=== PATIENT | female | born 1990 | race Caucasian/White ===

== ENCOUNTER 2019-01-05 06:37 | Inpatient (IN) | payer BC ==
[2019-01-05] MEDS ORDERED: Oxytocin/Lactated Ringers 10 UNIT/1,000 ML BAG IV SCH (07:15)
[2019-01-05] MEDS ORDERED: Misoprostol 25 MCG (1/4 of 100 MCG) Tab ONE ×2 (07:15→10:17)
[2019-01-05] MEDS ORDERED: Sodium Chloride 0.9% 10 ML Syringe FLUSH PRN (07:15)
[2019-01-05] MEDS ORDERED: Misoprostol 25 MCG (1/4 of 100 MCG) Tab VAG ONE (07:19)
--- NOTE | 2019-01-05 07:38 | PCM.LDHP ---
L&D History of Present Illness - General Date of Service: 01/05/19 Admit Problem/Dx: Admission Diagnosis/Problem Admission Diagnosis/Problem Source of Information: Patient History Limitations: Reports: No Limitations - History of Present Illness Introduction:: 28-year-old 001 OLMAN 01/10/19 estimated gestational age 39 weeks and 2 days presented to labor and delivery for induction of labor. Patient has been taking Valtrex 500 mg daily for history of herpes simplex virus of the vulva. No recent outbreaks. Patient also seen yesterday for severe tooth pain prescribed Tylenol No. 3 one or 2 by mouth every 6 hours dispense 20 and Augmentin 875 mg by mouth twice a day. She has started the Augmentin but trying to avoid pain medication if possible. We'll continue Augmentin and Valtrex in the hospital during labor and . GBS negative on 12/13/18. No history of exposure to Zika virus, no history of MRSA. 06/19/18 blood type A positive antibody screen negative, hemoglobin/hematocrit 12.6/37.0 platelets 311,000 rubella immune serology nonreactive urine culture showed 10 20,000 colony count streptococcus constellatus. Hepatitis B surface antigen and HIV negative GC and chlamydia probe negative 10/09/18 hemoglobin/hematocrit 11.7/35.7 platelets 236,000 OB glucose screen 102 RPR nonreactive On 12/13/18 GBS negative. Patient will undergo induction of labor and plan delivery. Improves with: Reports: None Worsens with: Reports: None Associated Symptoms: Reports: N - Related Data Allergies/Adverse Reactions: Allergies Allergy/AdvReac Type Severity Reaction Status Date / Time No Known Allergies Allergy Verified 01/04/19 12:42 Home Medications: Home Meds Amoxicillin/Clavulanate K [Augmentin 875-125 MG] 1 tab PO Q12HR 01/05/19 [ History] Pnv No.122/Iron/Folic Acid [ Multi Tablet] 1 each PO DAILY 01/05/19 [ History] valACYclovir HCl [Valtrex] 500 mg PO DAILY 01/05/19 [History] Past Medical History Genitourinary History: Reports: UTI, Recurrent (Patient has history of recurrent UTIs.) Dermatologic History: Reports: Other (See Below) (History of granuloma annulare) Social & Family History - Family History Cardiac: Reports: Hypertension (Paternal grandmother), Other (See Below) (Heart disease paternal and maternal grandfather, heart attack. Maternal grandmother congestive heart failure) Endocrine/Metabolic: Reports: Diabetes, Type I (Paternal grandmother and maternal grand mother and grandfather) H&P Review of Systems - Review of Systems: Review Of Systems: See Below General: Reports: No Symptoms HEENT: Reports: No Symptoms Pulmonary: Reports: No Symptoms Cardiovascular: Reports: No Symptoms Gastrointestinal: Reports: No Symptoms Genitourinary: Reports: No Symptoms Musculoskeletal: Reports: No Symptoms Skin: Reports: No Symptoms Psychiatric: Reports: No Symptoms Neurological: Reports: No Symptoms Hematologic/Lymphatic: Reports: No Symptoms Immunologic: Reports: No Symptoms L&D Exam - Exam Exam: See Below - Vital Signs Vital Signs: Last Vital Signs Temp 96.8 F 01/05/19 07:17 Pulse 116 H 01/05/19 07:17 Resp 14 01/05/19 07:17 BP 124/89 01/05/19 07:17 Pulse Ox - OB Specific Fundal Height In cm: 38 Movement: Active Heart Tones: Present Heart Tones per Min: 145 Heart Rate (FHR) Variability: Moderate (6-25 bmp) Presentation: Vertex - Colón Score Colón Score Cervix Position: Posterior Colón Score Consistency: Soft Colón Score Effacement: 0-30% Colón Score Dilation: 1-2 cm Colón Score 's Station: -1 ,0 Colón Score Total: 5 - Exam General: Alert, Oriented HEENT: Conjunctiva Clear, Mucosa Moist & [place], PERRLA Neck: Supple, Trachea Midline Lungs: Clear to Auscultation, Normal Respiratory Effort Cardiovascular: Regular Rate, Regular Rhythm GI/Abdominal Exam: Normal Bowel Sounds, Soft, Non-Tender Genitourinary: Normal external exam Extremities: Normal Inspection, Normal Range of Motion, Non-Tender, No Pedal Edema, Normal Capillary Refill Skin: Warm, Dry, Intact Neurological: Reflexes Equal Bilateral Psychiatric: Alert, Normal Affect, Normal Mood - Problem List (1) 39 weeks gestation of SNOMED Code(s): 23963190 ICD Code: Z3A.39 - 39 WEEKS GESTATION OF Status: Acute Current Visit: No Problem List Initiated/Reviewed/Updated: No Orders Last 24hrs: Active Orders 24 hr Category Date Time Status Communication Order [RC] ASDIRECTED Care 01/05/19 07:18 Active Communication Order [RC] ASDIRECTED Care 01/05/19 07:18 Active Communication Order [RC] ASDIRECTED Care 01/05/19 07:18 Active Monitoring [RC] INTERMITTENT Care 01/05/19 07:18 Active Non Stress Test [RC] PER UNIT ROUTINE Care 01/05/19 07:18 Active Notify Provider [RC] ASDIRECTED Care 01/05/19 07:18 Active Peripheral IV Care [RC] . DIRECTED Care 01/05/19 07:19 Active Vaginal Exam [RC] ASDIRECTED Care 01/05/19 07:18 Active Vital Signs [RC] ASDIRECTED Care 01/05/19 07:18 Active Regular Diet [DIET] Diet 01/05/19 Breakfast Active CBC WITH AUTO DIFF [HEME] Stat Lab 01/05/19 07:15 Ordered TYPE AND SCREEN [BBK] Stat Lab 01/05/19 07:15 Ordered Amoxicillin/Clavulanate K [Augmentin 875 MG/125 MG] Med 01/05/19 09:00 Pending 1 tab PO Q12HR Lactated Ringers [Ringers, Lactated] 1,000 ml Med 01/05/19 07:15 Active IV ASDIRECTED Oxytocin/Lactated Ringers [Pitocin in LR 10 Units/1,000 Med 01/05/19 07:15 Active ML] 10 unit in 1,000 ml IV TITRATE Sodium Chloride 0.9% [Saline Flush] Med 01/05/19 07:15 Active 10 ml FLUSH ASDIRECTED PRN valACYclovir [Valtrex] Med 01/05/19 09:00 Ordered 500 mg PO DAILY Peripheral IV Insertion Adult [OM.PC] Routine Oth 01/05/19 07:18 Ordered Medication Orders Amoxicillin/Clavulanate Potassium (Augmentin 875 Mg/125 Mg) 1 tab PO Q12HR AGA Lactated Ringer's (Ringers, Lactated) 1,000 mls @ 40 mls/hr IV ASDIRECTED AGA Oxytocin/Lactated Ringer's (Pitocin In Lr 10 Units/1,000 Ml) 10 unit in 1,000 mls @ 12 mls/hr IV TITRATE AGA; Protocol Sodium Chloride (Saline Flush) 10 ml FLUSH ASDIRECTED PRN PRN Reason: Keep Vein Open Valacyclovir HCl (Valtrex) 500 mg PO DAILY AGA Assessment/Plan Comment:: Plan delivery
[2019-01-05] MEDS ORDERED: diphenhydrAMINE 50 MG/ML SDV IVPUSH PRN (07:39)
[2019-01-05] MEDS ORDERED: fentaNYL 100 MCG/2 ML SDV EPIDUR PRN (07:39)
[2019-01-05] MEDS ORDERED: ePHEDrine 50 MG/ML SDV IVPUSH PRN (07:39)
[2019-01-05] MEDS ORDERED: Bupivacaine/fentaNYL/NS 100 ML Bag EPIDUR SCH (07:45)
--- NOTE | 2019-01-05 07:50 | PCM.SN ---
- Free Text/Narrative Note: [place] [address]05/[address]. Cat I FHR. Cervix 1, 30%, soft, posterior, vertex -1.
[2019-01-05] MEDS ORDERED: valACYclovir 500 MG Tab PO SCH ×3 (09:00→22:45)
--- NOTE | 2019-01-05 10:29 | PCM.SN ---
- Free Text/Narrative Note: Cervix -/S/P/V-[address] hood in cervix, attempted amniotomy but unsuccessful, place Cytotec 50 mcg at 1024 Cat I FHR.
[2019-01-05] MEDS ORDERED: Misoprostol 25 MCG (1/4 of 100 MCG) Tab VAG PRN (10:34)
[2019-01-05] MEDS ORDERED: Bupivacaine 0.25% 10 ML SDV ONE (12:00)
--- NOTE | 2019-01-05 13:21 | PCM.SN ---
- Free Text/Narrative Note: Amniotomy at 1315 hrs Tuesday01/05/19 clear fluid, cervix 2-3,40,soft, posterior , vertex-1/0. Cat I FHR. Will begin pitocin augmentation when indicated.
[2019-01-05] MEDS: Lactated Ringers 1,000 ML IV SCH ×2 (13:30→15:41)
--- NOTE | 2019-01-05 14:56 | PCM.PREANE ---
Preanesthetic Assessment - Anesthesia/Transfusion/Family Hx Anesthesia History: Prior Anesthesia Without Reaction Family History of Anesthesia Reaction: No Transfusion History: No Prior Transfusion(s) - Physical Assessment Pulse: 104 O2 Sat by Pulse Oximetry: 100 Respiratory Rate: 14 Blood Pressure: 117/80 Vital Signs: Last Vital Signs Temp 36.0 C 01/05/19 07:18 Pulse 104 H 01/05/19 08:30 Resp 14 01/05/19 07:18 BP 117/80 01/05/19 08:30 Pulse Ox 100 01/05/19 07:18 Height: 1.57 m Weight: 80.739 kg - Lab Values: Laboratory Last Values WBC 11.71 K/mm3 (3.98-10.04) H 01/05/19 07:35 RBC 4.31 M/mm3 (3.98-5.22) 01/05/19 07:35 Hgb 12.1 gm/L (11.2-15.7) 01/05/19 07:35 Hct 36.6 % (34.1-44.9) 01/05/19 07:35 MCV 84.9 fl (79.4-94.8) 01/05/19 07:35 MCH 28.1 pg (25.6-32.2) 01/05/19 07:35 MCHC 33.1 g/dl (32.2-35.5) 01/05/19 07:35 RDW Std Deviation 45.7 fL (36.4-46.3) 01/05/19 07:35 Plt Count 233 K/mm3 (182-369) 01/05/19 07:35 MPV 10.4 fl (9.4-12.3) 01/05/19 07:35 Neut % (Auto) 71.0 % (34.0-71.1) 01/05/19 07:35 Lymph % (Auto) 20.0 % (19.3-51.7) 01/05/19 07:35 [place] % (Auto) 8.0 % (4.7-12.5) 01/05/19 07:35 Eos % (Auto) 0.4 (0.7-5.8) L 01/05/19 07:35 Baso % (Auto) 0.1 % (0.1-1.2) 01/05/19 07:35 Neut # (Auto) 8.31 K/mm3 (1.56-6.13) H 01/05/19 07:35 Lymph # (Auto) 2.34 K/mm3 (1.18-3.74) 01/05/19 07:35 [place] # (Auto) 0.94 K/mm3 (0.24-0.36) H 01/05/19 07:35 Eos # (Auto) 0.05 K/mm3 (0.04-0.36) 01/05/19 07:35 Baso # (Auto) 0.01 K/mm3 (0.01-0.08) 01/05/19 07:35 Blood Type A POSITIVE 01/05/19 07:35 Gel Antibody Screen Negative 01/05/19 07:35 - Allergies Allergies/Adverse Reactions: Allergies Allergy/AdvReac Type Severity Reaction Status Date / Time No Known Allergies Allergy Verified 01/04/19 12:42 PreAnesthesia Questionnaire Genitourinary History: Reports: UTI, Recurrent (Patient has history of recurrent UTIs.) [employer] History: Reports: Dermatologic History: Reports: Other (See Below) (History of granuloma annulare) - Infectious Disease History Infectious Disease History: Reports: Herpes - SUBSTANCE USE Smoking Status *Q: Never Smoker Second Hand Smoke Exposure: No Recreational Drug Use History: No - HOME MEDS Home Medications: Home Meds Amoxicillin/Clavulanate K [Augmentin 875-125 MG] 1 tab PO Q12HR 01/05/19 [ History] Pnv No.122/Iron/Folic Acid [ Multi Tablet] 1 each PO DAILY 01/05/19 [ History] valACYclovir HCl [Valtrex] 500 mg PO DAILY 01/05/19 [History] - CURRENT (IN HOUSE) MEDS Current Meds: Current Medications Diphenhydramine HCl (Benadryl) 25 mg IVPUSH Q6H PRN PRN Reason: Itching Ephedrine Sulfate (Ephedrine Sulfate) 5 mg IVPUSH ASDIRECTED PRN PRN Reason: HYPOTENTSION Fentanyl (Sublimaze) 100 mcg EPIDUR Q3H PRN PRN Reason: Pain Fentanyl/Bupivacaine HCl (Fentanyl/Bupivacaine/Ns 2 Mcg-0.125% 100 Ml) 100 ml EPIDUR ASDIRECTED AGA Last Admin: 01/05/19 14:18 Dose: 100 ml Lactated Ringer's (Ringers, Lactated) 1,000 mls @ 40 mls/hr IV ASDIRECTED [facility] Last Admin: 01/05/19 13:30 Dose: 40 mls/hr Oxytocin/Lactated Ringer's (Pitocin In Lr 10 Units/1,000 Ml) 10 unit in 1,000 mls @ 12 mls/hr IV TITRATE [facility]; Protocol Last Admin: 01/05/19 14:01 Dose: 2 munits/min, 12 mls/hr Misoprostol (Cytotec) 50 mcg VAG ONETIME PRN PRN Reason: labor induction Amoxicillin/Clavulanate K 875- 125 Mg Tab Ptom 0 each PO Q12H [facility] Sodium Chloride (Saline Flush) 10 ml FLUSH ASDIRECTED PRN PRN Reason: Keep Vein Open Valacyclovir HCl (Valtrex) 500 mg PO 2100 AGA Discontinued Medications Amoxicillin/Clavulanate Potassium (Augmentin 875 Mg/125 Mg) 1 tab PO Q12H [facility] Misoprostol (Cytotec) Confirm Administered Dose 50 mcg .ROUTE .STK-MED ONE Stop: 01/05/19 07:16 Last Admin: 01/05/19 07:24 Dose: 50 mcg Misoprostol (Cytotec) 50 mcg VAG ONETIME ONE Stop: 01/05/19 07:20 Last Admin: 01/05/19 14:02 Dose: Not Given Misoprostol (Cytotec) Confirm Administered Dose 50 mcg .ROUTE .STK-MED ONE Stop: 01/05/19 10:18 Last Admin: 01/05/19 10:32 Dose: 50 mcg Valacyclovir HCl (Valtrex) 500 mg PO DAILY [facility]
--- NOTE | 2019-01-05 14:58 | PCM.POSTAN ---
POST ANESTHESIA ASSESSMENT - MENTAL STATUS Mental Status: Alert - RESPIRATORY Respiratory Status: Respiratory Rate WNL, Airway Patent, O2 Saturation Stable - CARDIOVASCULAR CV Status: Pulse Rate WNL, Blood Pressure Stable - GASTROINTESTINAL GI Status: No Symptoms - POST OP HYDRATION Hydration Status: Adequate & Stable
--- NOTE | 2019-01-05 14:59 | PCM.PREANE ---
Preanesthetic Assessment - Anesthesia/Transfusion/Family Hx Anesthesia History: Prior Anesthesia Without Reaction Family History of Anesthesia Reaction: No Transfusion History: No Prior Transfusion(s) Intubation History: Unknown - Review of Systems General: No Symptoms Pulmonary: No Symptoms Cardiovascular: No Symptoms Gastrointestinal: No Symptoms Neurological: No Symptoms Other: Reports: None - Physical Assessment Pulse: 104 O2 Sat by Pulse Oximetry: 100 Respiratory Rate: 14 Blood Pressure: 117/80 Vital Signs: Last Vital Signs Temp 36.0 C 01/05/19 07:18 Pulse 104 H 01/05/19 14:56 Resp 14 01/05/19 14:56 BP 117/80 01/05/19 14:56 Pulse Ox 100 01/05/19 14:56 Height: 1.57 m Weight: 80.739 kg Mental Status: Alert & Oriented x3 Airway Class: Mallampati = 1 Dentition: Reports: Normal Dentition ROM/Head Extension: Full Lungs: Clear to Auscultation Cardiovascular: Regular Rate, Regular Rhythm - Lab Values: Laboratory Last Values WBC 11.71 K/mm3 (3.98-10.04) H 01/05/19 07:35 RBC 4.31 M/mm3 (3.98-5.22) 01/05/19 07:35 Hgb 12.1 gm/L (11.2-15.7) 01/05/19 07:35 Hct 36.6 % (34.1-44.9) 01/05/19 07:35 MCV 84.9 fl (79.4-94.8) 01/05/19 07:35 MCH 28.1 pg (25.6-32.2) 01/05/19 07:35 MCHC 33.1 g/dl (32.2-35.5) 01/05/19 07:35 RDW Std Deviation 45.7 fL (36.4-46.3) 01/05/19 07:35 Plt Count 233 K/mm3 (182-369) 01/05/19 07:35 MPV 10.4 fl (9.4-12.3) 01/05/19 07:35 Neut % (Auto) 71.0 % (34.0-71.1) 01/05/19 07:35 Lymph % (Auto) 20.0 % (19.3-51.7) 01/05/19 07:35 [place] % (Auto) 8.0 % (4.7-12.5) 01/05/19 07:35 Eos % (Auto) 0.4 (0.7-5.8) L 01/05/19 07:35 Baso % (Auto) 0.1 % (0.1-1.2) 01/05/19 07:35 Neut # (Auto) 8.31 K/mm3 (1.56-6.13) H 01/05/19 07:35 Lymph # (Auto) 2.34 K/mm3 (1.18-3.74) 01/05/19 07:35 [place] # (Auto) 0.94 K/mm3 (0.24-0.36) H 01/05/19 07:35 Eos # (Auto) 0.05 K/mm3 (0.04-0.36) 01/05/19 07:35 Baso # (Auto) 0.01 K/mm3 (0.01-0.08) 01/05/19 07:35 Blood Type A POSITIVE 01/05/19 07:35 Gel Antibody Screen Negative 01/05/19 07:35 - Allergies Allergies/Adverse Reactions: Allergies Allergy/AdvReac Type Severity Reaction Status Date / Time No Known Allergies Allergy Verified 01/04/19 12:42 - Anesthesia Plan Pre-Op Medication Ordered: None - Acknowledgements Anesthesia Type Planned: Epidural Pt an Appropriate Candidate for the Planned Anesthesia: Yes Alternatives and Risks of Anesthesia Discussed w Pt/Guardian: Yes Pt/Guardian Understands and Agrees with Anesthesia Plan: Yes PreAnesthesia Questionnaire Genitourinary History: Reports: UTI, Recurrent (Patient has history of recurrent UTIs.) CALL PERSON History: Reports: Dermatologic History: Reports: Other (See Below) (History of granuloma annulare) - Infectious Disease History Infectious Disease History: Reports: Herpes - SUBSTANCE USE Smoking Status *Q: Never Smoker Second Hand Smoke Exposure: No Recreational Drug Use History: No - HOME MEDS Home Medications: Home Meds Amoxicillin/Clavulanate K [Augmentin 875-125 MG] 1 tab PO Q12HR 01/05/19 [ History] Pnv No.122/Iron/Folic Acid [ Multi Tablet] 1 each PO DAILY 01/05/19 [ History] valACYclovir HCl [Valtrex] 500 mg PO DAILY 01/05/19 [History] - CURRENT (IN HOUSE) MEDS Current Meds: Current Medications Diphenhydramine HCl (Benadryl) 25 mg IVPUSH Q6H PRN PRN Reason: Itching Ephedrine Sulfate (Ephedrine Sulfate) 5 mg IVPUSH ASDIRECTED PRN PRN Reason: HYPOTENTSION Fentanyl (Sublimaze) 100 mcg EPIDUR Q3H PRN PRN Reason: Pain Fentanyl/Bupivacaine HCl (Fentanyl/Bupivacaine/Ns 2 Mcg-0.125% 100 Ml) 100 ml EPIDUR ASDIRECTED [facility] Last Admin: 01/05/19 14:18 Dose: 100 ml Lactated Ringer's (Ringers, Lactated) 1,000 mls @ 40 mls/hr IV ASDIRECTED [facility] Last Admin: 01/05/19 13:30 Dose: 40 mls/hr Oxytocin/Lactated Ringer's (Pitocin In Lr 10 Units/1,000 Ml) 10 unit in 1,000 mls @ 12 mls/hr IV TITRATE [facility]; Protocol Last Admin: 01/05/19 14:01 Dose: 2 munits/min, 12 mls/hr Misoprostol (Cytotec) 50 mcg VAG ONETIME PRN PRN Reason: labor induction Amoxicillin/Clavulanate K 875- 125 Mg Tab Ptom 0 each PO Q12H [facility] Sodium Chloride (Saline Flush) 10 ml FLUSH ASDIRECTED PRN PRN Reason: Keep Vein Open Valacyclovir HCl (Valtrex) 500 mg PO 2100 AGA Discontinued Medications Amoxicillin/Clavulanate Potassium (Augmentin 875 Mg/125 Mg) 1 tab PO Q12H [facility] Misoprostol (Cytotec) Confirm Administered Dose 50 mcg .ROUTE .STK-MED ONE Stop: 01/05/19 07:16 Last Admin: 01/05/19 07:24 Dose: 50 mcg Misoprostol (Cytotec) 50 mcg VAG ONETIME ONE Stop: 01/05/19 07:20 Last Admin: 01/05/19 14:02 Dose: Not Given Misoprostol (Cytotec) Confirm Administered Dose 50 mcg .ROUTE .STK-MED ONE Stop: 01/05/19 10:18 Last Admin: 01/05/19 10:32 Dose: 50 mcg Valacyclovir HCl (Valtrex) 500 mg PO DAILY [facility]
--- NOTE | 2019-01-05 16:41 | PCM.SN ---
- Free Text/Narrative Note: Cervix 8 cm, 100 % effaced, soft, anterior, vertex at +1 station. Cat II FHR, changing positions, discontinued Pitocin.
--- NOTE | 2019-01-05 17:05 | PCM.SN ---
- Free Text/Narrative Note: Rim of cervix on right, (9cm), +1 station, FHR improved with repositioning patient. Continue with anticipated vaginal delivery.
[2019-01-05] MEDS ORDERED: CLAVULANATE K PO SCH (18:00)
[2019-01-05] MEDS ORDERED: AMOXICILLIN PO SCH (18:00)
[2019-01-05] MEDS ORDERED: Lidocaine 1% 50 ML MDV ONE (18:14)
--- NOTE | 2019-01-05 18:55 | PCM.DEL ---
L & D Note - General Info Date of Service: 01/05/19 Mother's Due Date: 01/09/19 - Delivery Note Labor: Augmented by ARM, Augmented by Oxytocin Cervical Ripening Method: Misoprostil (50 mcg x2 ) Delivery Outcome: Livebirth (male liveborn Tuesday01/05/19 at 18 when he 6 hours ESTHELA short umbilical cord. Weight 3460 grams/7 pounds 10 ounces Apgars 7/8 under epidural anesthesia over a second-degree midline perineal laceration and first- degree right labia minora laceration within 2 mm of the external urethral meatus. The first-degree laceration, pressure applied for 10 minutes by the clock and no bleeding not sutured. Second-degree laceration midline and sutured with 3-0 Monocryl times one) Delivery Method: Spontaneous Vaginal Delivery-Single Delivery Mode: Spontaneous Presentation: Left Occiput Anterior (ESTHELA) Nuchal Cord: None (Short umbilical cord) Prep: Povidone-Iodine (Betadine Anesthesia Type: Epidural Amniotic Fluid Description: Clear Episiotomy Type: None Laceration: 1st Degree (Right labia minora first-degree laceration within 2 mm of the external urethral meatus. Pressure applied bleeding controlled with pressure no sutures needed.), 2nd Degree (Active degree midline perineal laceration sutured with 3-0 Monocryl times one) Suture type: Other (Monocryl) Suture size: 3-0 (Times one) Placenta: Intact, Spontaneous (Spontaneous delivery of placenta 1832 hrs. Tuesday01/05/19 intact 3 vessel cord eccentric cord insertion short umbilical cord) Cord: 3 Vessels Estimated Blood Loss: 250 Resuscitation Needed: No [place]: Suctioned, Bulb Syringe, Stimulated, Warmed, [place] Used, Warmer Used Provider: Tre Schwartz Score 1 min: 7 Score 5 min: 8 Induction Criteria - Colón Score Colón Score Dilation: 1-2 cm Colón Score Effacement: 0-30% Colón Score 's Station: -2 Colón Score Consistency: Soft Colón Score Cervix Position: Posterior Colón Score Total: 4 Colón Score Presenting Part: Reports: Cephalic - Induction Gestational Age >/= 39 wks: Yes Estimated Pelvis: Reports: Adequate Reassuring Monitoring Strip: Yes Absence of Tachy Systole: Yes - Augmentation Estimated Pelvis: Reports: Adequate Weight Estimated:: Reports: AGA Reassuring Monitoring Strip: Yes Absence of Tachy Systole: Yes - General Info Date of Service: 01/05/19 Functional Status: Reports: Pain Controlled - Review of Systems General: Reports: No Symptoms HEENT: Reports: No Symptoms Pulmonary: Reports: No Symptoms Cardiovascular: Reports: No Symptoms Gastrointestinal: Reports: No Symptoms Genitourinary: Reports: No Symptoms Musculoskeletal: Reports: No Symptoms Skin: Reports: No Symptoms Neurological: Reports: No Symptoms Psychiatric: Reports: No Symptoms - Patient Data Vitals - Most Recent: Last Vital Signs Temp 96.8 F 01/05/19 07:18 Pulse 104 H 01/05/19 14:59 Resp 14 01/05/19 14:59 BP 117/80 01/05/19 14:59 Pulse Ox 100 01/05/19 14:59 Weight - Most Recent: 178 lb I&O - Last 24 Hours: Intake & Output 01/05/19 01/05/19 01/05/19 06:59 14:59 22:59 Intake Total 300 Balance 300 Lab Results Last 24 Hours: Laboratory Results - last 24 hr 01/05/19 01/05/19 Range/Units 07:35 07:35 WBC 11.71 H (3.98-10.04) K/mm3 RBC 4.31 (3.98-5.22) M/mm3 Hgb 12.1 (11.2-15.7) gm/L Hct 36.6 (34.1-44.9) % MCV 84.9 (79.4-94.8) fl MCH 28.1 (25.6-32.2) pg MCHC 33.1 (32.2-35.5) g/dl RDW Std Deviation 45.7 (36.4-46.3) fL Plt Count 233 (182-369) K/mm3 MPV 10.4 (9.4-12.3) fl Neut % (Auto) 71.0 (34.0-71.1) % Lymph % (Auto) 20.0 (19.3-51.7) % [place] % (Auto) 8.0 (4.7-12.5) % Eos % (Auto) 0.4 L (0.7-5.8) Baso % (Auto) 0.1 (0.1-1.2) % Neut # (Auto) 8.31 H (1.56-6.13) K/mm3 Lymph # (Auto) 2.34 (1.18-3.74) K/mm3 [place] # (Auto) 0.94 H (0.24-0.36) K/mm3 Eos # (Auto) 0.05 (0.04-0.36) K/mm3 Baso # (Auto) 0.01 (0.01-0.08) K/mm3 Blood Type A POSITIVE Gel Antibody Screen Negative Med Orders - Current: Current Medications Diphenhydramine HCl (Benadryl) 25 mg IVPUSH Q6H PRN PRN Reason: Itching Ephedrine Sulfate (Ephedrine Sulfate) 5 mg IVPUSH ASDIRECTED PRN PRN Reason: HYPOTENTSION Fentanyl (Sublimaze) 100 mcg EPIDUR Q3H PRN PRN Reason: Pain Fentanyl/Bupivacaine HCl (Fentanyl/Bupivacaine/Ns 2 Mcg-0.125% 100 Ml) 100 ml EPIDUR ASDIRECTED [facility] Last Admin: 01/05/19 14:18 Dose: 100 ml Lactated Ringer's (Ringers, Lactated) 1,000 mls @ 40 mls/hr IV ASDIRECTED [facility] Last Admin: 01/05/19 15:41 Dose: 40 mls/hr Oxytocin/Lactated Ringer's (Pitocin In Lr 10 Units/1,000 Ml) 10 unit in 1,000 mls @ 12 mls/hr IV TITRATE [facility]; Protocol Last Titration: 01/05/19 15:55 Dose: 0 munits/min, 0 mls/hr Misoprostol (Cytotec) 50 mcg VAG ONETIME PRN PRN Reason: labor induction Amoxicillin/Clavulanate K 875- 125 Mg Tab Ptom 0 each PO Q12H [facility] Sodium Chloride (Saline Flush) 10 ml FLUSH ASDIRECTED PRN PRN Reason: Keep Vein Open Valacyclovir HCl (Valtrex) 500 mg PO 2100 AGA Discontinued Medications Amoxicillin/Clavulanate Potassium (Augmentin 875 Mg/125 Mg) 1 tab PO Q12H AGA Lidocaine HCl (Xylocaine 1%) Confirm Administered Dose 50 ml .ROUTE .STK-MED ONE Stop: 01/05/19 18:15 Misoprostol (Cytotec) Confirm Administered Dose 50 mcg .ROUTE .STK-MED ONE Stop: 01/05/19 07:16 Last Admin: 01/05/19 07:24 Dose: 50 mcg Misoprostol (Cytotec) 50 mcg VAG ONETIME ONE Stop: 01/05/19 07:20 Last Admin: 01/05/19 14:02 Dose: Not Given Misoprostol (Cytotec) Confirm Administered Dose 50 mcg .ROUTE .STK-MED ONE Stop: 01/05/19 10:18 Last Admin: 01/05/19 10:32 Dose: 50 mcg Valacyclovir HCl (Valtrex) 500 mg PO DAILY AGA - Exam General: Alert, Oriented HEENT: Pupils Equal, Mucous Membr. Moist/[place] Neck: Supple Lungs: Clear to Auscultation, Normal Respiratory Effort Cardiovascular: Regular Rate, Regular Rhythm GI/Abdominal Exam: Normal Bowel Sounds, Soft (Female) Exam: Normal External Exam Extremities: Normal Inspection, Normal Range of Motion, Non-Tender, No Pedal Edema, Normal Capillary Refill Skin: Warm, Dry, Intact Psy/Mental Status: Alert, Normal Affect, Normal Mood - Problem List & Annotations (1) 39 weeks gestation of SNOMED Code(s): 98807916 Code(s): Z3A.39 - 39 WEEKS GESTATION OF Status: Acute Current Visit: No (2) Perineal laceration with delivery, second degree, condition SNOMED Code(s): 426767883 Code(s): O70.1 - SECOND DEGREE PERINEAL LACERATION DURING DELIVERY Status: Acute Current Visit: Yes (3) Obstetrical laceration, first degree SNOMED Code(s): 64742570 Code(s): O70.0 - FIRST DEGREE PERINEAL LACERATION DURING DELIVERY Status: Acute Current Visit: Yes (4) Short umbilical cord, delivered, current hospitalization SNOMED Code(s): 597919724, 821152444 Code(s): O69.3XX0 - LABOR AND DELIVERY COMPLICATED BY SHORT CORD, UNSP Status: Acute Current Visit: Yes - Problem List Review Problem List Initiated/Reviewed/Updated: No - My Orders Last 24 Hours: My Active Orders 01/05/19 07:15 Admission Status [Patient Status] [ADT] Routine Lactated Ringers [Ringers, Lactated] 1,000 ml IV ASDIRECTED Oxytocin/Lactated Ringers [Pitocin in LR 10 Units/1,000 ML] 10 unit in 1,000 ml IV TITRATE Sodium Chloride 0.9% [Saline Flush] 10 ml FLUSH ASDIRECTED PRN 01/05/19 07:18 Communication Order [RC] ASDIRECTED Communication Order [RC] ASDIRECTED Communication Order [RC] ASDIRECTED Notify Provider [RC] ASDIRECTED Vital Signs [RC] ASDIRECTED Peripheral IV Insertion Adult [OM.PC] Routine 01/05/19 07:19 Peripheral IV Care [RC] . DIRECTED 01/05/19 10:34 miSOPROStol [Cytotec] 50 mcg VAG ONETIME PRN 01/05/19 18:00 Patient's Own Medication [Ptom] 0 each PO Q12H 01/05/19 21:00 valACYclovir [Valtrex] 500 mg PO 2100 01/05/19 Breakfast Regular Diet [DIET] - Plan Plan:: Plan delivery
[2019-01-05] MEDS ORDERED: Acetaminophen 325 MG Tab PO PRN (19:36)
[2019-01-05] MEDS ORDERED: Lanolin 100% Cream 7 GM Tube TOP PRN (19:36)
[2019-01-05] MEDS ORDERED: Benzocaine/Menthol 20%-0.5% Spray 56 GM Canister TOP PRN (19:36)
[2019-01-05] MEDS ORDERED: Witch Hazel Medicated Pads 40/Jar TOP PRN (19:36)
[2019-01-05] MEDS ORDERED: Docusate Sodium 100 MG Cap PO PRN (19:36)
[2019-01-05] MEDS ORDERED: Amoxicillin/Clavulanate K 875-125 MG Tab PO SCH (21:00)
[2019-01-05] MEDS: Amoxicillin/Clavulanate K 875-125 MG Tab PO SCH (21:15)
[2019-01-05] MEDS: Ibuprofen 600 MG Tab PO PRN (22:52)
[2019-01-06] MEDS: Ibuprofen 600 MG Tab PO PRN ×3 (06:32→23:56)
[2019-01-06] MEDS ORDERED: valACYclovir 500 MG Tab PO SCH (09:00)
--- NOTE | 2019-01-06 09:45 | PCM.POSTAN ---
POST ANESTHESIA ASSESSMENT - RESPIRATORY Respiratory Status: Respiratory Rate WNL, Airway Patent, O2 Saturation Stable - CARDIOVASCULAR CV Status: Pulse Rate WNL, Blood Pressure Stable - GASTROINTESTINAL GI Status: No Symptoms - POST OP HYDRATION Hydration Status: Adequate & Stable
--- NOTE | 2019-01-06 09:46 | PCM48HPAN ---
Post Anesthesia Note - EVALUATION WITHIN 48HRS OF ANESTHETIC Vital Signs in Normal Range: Yes Patient Participated in Evaluation: Yes Respiratory Function Stable: Yes Airway Patent: Yes Cardiovascular Function Stable: Yes Hydration Status Stable: Yes Pain Control Satisfactory: Yes Nausea and Vomiting Control Satisfactory: Yes Pulse Rate: 94 Resp Rate: 16 Temperature: 36.1 C Blood Pressure: 108/68 - COMMENTS/OBSERVATIONS Free Text/Narrative:: doing well no problems noted
--- NOTE | 2019-01-06 10:01 | PCM.SN ---
- Free Text/Narrative Note: Post Progress Note PPD # 1 Subjective: Doing well overall. Ambulating without difficulty. Lochia minimal. Voiding without difficulty. Tolerating regular diet without nausea or vomiting. Pain controlled with oral medications. Breast-feeding with minimal difficulty. Objective: Vitals: Vital Signs - 24 hr 01/05/19 01/05/19 01/05/19 14:56 14:59 19:36 Temperature Temperature [ 36.3 C Temporal] Pulse, 104 H 104 H Peripheral Pulse, 90 Peripheral [ Brachial] Respiratory 14 14 16 Rate Blood Pressure 117/80 117/80 Blood Pressure 114/69 [Upper Arm] O2 Sat by Pulse 100 100 Oximetry 01/05/19 01/06/19 01/06/19 21:33 02:41 09:45 Temperature 36.3 C 36.1 C 36.1 C Temperature [ Temporal] Pulse, 94 94 Peripheral Pulse, Peripheral [ Brachial] Respiratory 16 16 16 Rate Blood Pressure 124/77 108/68 108/68 Blood Pressure [Upper Arm] O2 Sat by Pulse 99 Oximetry Physical Exam General: Alert and oriented, no acute distress Lungs: Clear to auscultation bilaterally Heart: Regular rate and rhythm Abdomen: Soft, minimal appropriate tenderness, non-distended, fundus midline, nontender, and at the umbilicus Extremities: No edema ASSESSMENT: 28-year-old female 002 s/p normal vaginal delivery PPD #1, complicated by history of HSV-2 and current dental caries PLAN: Doing well Breast-feeding with minimal difficulty. Assist as needed Lochia minimal. Continue to monitor for appropriate lochia. Continue routine care Continue Augmentin for treatment of dental caries Anticipate discharge home tomorrow Jose Francisco Sheldon MD 9:59 AM 01/06/2019
[2019-01-06] MEDS: Amoxicillin/Clavulanate K 875-125 MG Tab PO SCH ×2 (10:30→23:56)
[2019-01-06] MEDS: Prenatal Multivitamin with Calcium/Folic Acid/Iron Tab PO SCH (14:30)
[2019-01-06] MEDS ORDERED: VALACYCLOVIR 500 MG PO SCH (21:00)
--- NOTE | 2019-01-07 08:24 | PCM.SN ---
- Free Text/Narrative Note: Post Progress Note PPD # 2 Subjective: Doing well overall. Ambulating without difficulty. Lochia minimal. Reports that she is passing small amounts of blood clots with lochia but they are approximately pea-sized. Voiding without difficulty. Tolerating regular diet without nausea or vomiting. Pain controlled with oral medications. Reports she is having some cramping pain with breast-feeding. Breast-feeding with minimal difficulty. Objective: Vitals: Vital Signs - 24 hr 01/06/19 01/06/19 01/06/19 09:20 09:45 16:09 Temperature 36.1 C 36.1 C 36.0 C Pulse, 106 H 94 93 Peripheral Respiratory 14 16 14 Rate Blood Pressure 116/68 108/68 119/73 O2 Sat by Pulse 98 99 Oximetry 01/06/19 01/07/19 19:58 03:45 Temperature 36.3 C 36.2 C Pulse, 95 84 Peripheral Respiratory 16 16 Rate Blood Pressure 112/66 113/63 O2 Sat by Pulse 99 100 Oximetry Physical Exam General: Alert and oriented, no acute distress Lungs: Clear to auscultation bilaterally Heart: Regular rate and rhythm Abdomen: Soft, minimal appropriate tenderness, non-distended, fundus midline, nontender, and at the umbilicus Extremities: Trace edema in bilateral lower extremities to mid shins ASSESSMENT: 28-year-old female 002 s/p normal vaginal delivery PPD #2, complicated by history of HSV-2 and current dental caries PLAN: Doing well Breast-feeding with minimal difficulty. Assist as needed Lochia minimal. Continue to monitor for appropriate lochia. Continue routine care Continue Augmentin for treatment of dental caries Discharge home today Jose Francisco Sheldon MD 8:23 AM 01/07/2019
--- NOTE | 2019-01-07 08:29 | PCM.DCSUM1 ---
Discharge Summary - Hospital Course Free Text/Narrative:: - Delivery Note Labor: Augmented by ARM, Augmented by Oxytocin Cervical Ripening Method: Misoprostil (50 mcg x2 ) Delivery Outcome: Livebirth (male liveborn Tuesday01/05/19 at 18 when he 6 hours ESTHELA short umbilical cord. Weight 3460 grams/7 pounds 10 ounces Apgars 7/8 under epidural anesthesia over a second-degree midline perineal laceration and first- degree right labia minora laceration within 2 mm of the external urethral meatus. The first-degree laceration, pressure applied for 10 minutes by the clock and no bleeding not sutured. Second-degree laceration midline and sutured with 3-0 Monocryl times one) Delivery Method: Spontaneous Vaginal Delivery-Single Infant Delivery Mode: Spontaneous Presentation: Left Occiput Anterior (ESTHELA) Nuchal Cord: None (Short umbilical cord) Prep: Povidone-Iodine (Betadine Anesthesia Type: Epidural Amniotic Fluid Description: Clear Episiotomy Type: None Laceration: 1st Degree (Right labia minora first-degree laceration within 2 mm of the external urethral meatus. Pressure applied bleeding controlled with pressure no sutures needed.), 2nd Degree (Active degree midline perineal laceration sutured with 3-0 Monocryl times one) Suture type: Other (Monocryl) Suture size: 3-0 (Times one) Placenta: Intact, Spontaneous (Spontaneous delivery of placenta 1832 hrs. Tuesday01/05/19 intact 3 vessel cord eccentric cord insertion short umbilical cord) Cord: 3 Vessels Estimated Blood Loss: 250 Resuscitation Needed: No Cope: Suctioned, Bulb Syringe, Stimulated, Warmed, [place] Used, Warmer Used Provider: Tre Schwartz Score 1 min: 7 Score 5 min: 8 HPI Initial Comments: - Delivery Note Labor: Augmented by ARM, Augmented by Oxytocin Cervical Ripening Method: Misoprostil (50 mcg x2 ) Delivery Outcome: Livebirth (male liveborn Tuesday01/05/19 at 18 when he 6 hours ESTHELA short umbilical cord. Weight 3460 grams/7 pounds 10 ounces Apgars 7/8 under epidural anesthesia over a second-degree midline perineal laceration and first- degree right labia minora laceration within 2 mm of the external urethral meatus. The first-degree laceration, pressure applied for 10 minutes by the clock and no bleeding not sutured. Second-degree laceration midline and sutured with 3-0 Monocryl times one) Infant Delivery Method: Spontaneous Vaginal Delivery-Single Delivery Mode: Spontaneous Presentation: Left Occiput Anterior (ESTHELA) Nuchal Cord: None (Short umbilical cord) Prep: Povidone-Iodine (Betadine Anesthesia Type: Epidural Amniotic Fluid Description: Clear Episiotomy Type: None Laceration: 1st Degree (Right labia minora first-degree laceration within 2 mm of the external urethral meatus. Pressure applied bleeding controlled with pressure no sutures needed.), 2nd Degree (Active degree midline perineal laceration sutured with 3-0 Monocryl times one) Suture type: Other (Monocryl) Suture size: 3-0 (Times one) Placenta: Intact, Spontaneous (Spontaneous delivery of placenta 1832 hrs. Tuesday01/05/19 intact 3 vessel cord eccentric cord insertion short umbilical cord) Cord: 3 Vessels Estimated Blood Loss: 250 Resuscitation Needed: No : Suctioned, Bulb Syringe, Stimulated, Warmed, [place] Used, Warmer Used Provider: Tre Schwartz Score 1 min: 7 Score 5 min: 8 Brief History: - Delivery Note. Labor: Augmented by ARM, Augmented by Oxytocin. Cervical Ripening Method: Misoprostil (50 mcg x2 ). Delivery Outcome : Livebirth (male liveborn Tuesday01/05/19 at 18 when he 6 hours ESTHELA short umbilical cord. Weight 3460 grams/7 pounds 10 ounces Apgars 7/8 under epidural anesthesia over a second-degree midline perineal laceration and first-degree right labia minora laceration within 2 mm of the external urethral meatus. The first-degree laceration, pressure applied for 10 minutes by the clock and no bleeding not sutured. Second-degree laceration midline and sutured with 3-0 Monocryl times one). Infant Delivery Method: Spontaneous Vaginal Delivery- Single. Infant Delivery Mode: Spontaneous. Presentation: Left Occiput Anterior (ESTHELA). Nuchal Cord: None (Short umbilical cord). Prep: Povidone- Iodine (Betadine. Anesthesia Type: Epidural. Amniotic Fluid Description: Clear. Episiotomy Type: None. Laceration: 1st Degree (Right labia minora first -degree laceration within 2 mm of the external urethral meatus. Pressure applied bleeding controlled with pressure no sutures needed.), 2nd Degree ( Active degree midline perineal laceration sutured with 3-0 Monocryl times one). Suture type: Other (Monocryl). Suture size: 3-0 (Times one). Placenta: Intact, Spontaneous (Spontaneous delivery of placenta 1832 hrs. Tuesday01/05/19 intact 3 vessel cord eccentric cord insertion short umbilical cord). Cord: 3 Vessels. Estimated Blood Loss: 250. Resuscitation Needed: No. : Suctioned, Bulb Syringe, Stimulated, Warmed, [place] Used, Warmer Used. Provider: Ter Schwartz. Score 1 min: 7. Score 5 min : 8 Diagnosis: Stroke: No - Discharge Data Discharge Date: 01/07/19 Discharge Disposition: Home, Self-Care 01 Condition: Good - Patient Summary/Data Complications: None Consults: None Hospital Course: Angella Vincent was admitted for elective induction of labor. On admission her cervix was dilated to 1-2 cm. She was GBS negative. She was given 2 doses of Cytotec for induction of labor. She had artificial rupture membranes with clear fluid. She was given pitocin for augmentation. She was given an epidural for anesthesia. She progressed to complete and began pushing. On 01/05 she had a normal vaginal delivery of a live male at 1826. Apgars of 7 and 8. Weight of 3460 g (7 lbs. 10 oz.). Her course was uneventful. Her pain was well controlled and she had minimal lochia. She was ambulating, tolerating a regular diet and voiding normally. She was breast- feeding with minimal difficulty. She was afebrile and her hematocrit was 32.9 on day #1. She desired to be discharged home on the morning of PPD # 2. Her blood type is A+. - Patient Instructions Diet: Regular Diet as Tolerated Activity: Apply Ice, As Tolerated Activity, Other: Nothing in the vagina for 6 weeks Driving: May Drive Today Showering/Bathing: May Shower Notify Provider of: Fever, Increased Pain, Swelling and Redness, Drainage, Nausea and/or Vomiting Other/Special Instructions: Please contact your physician's office if you have heavy vaginal bleeding enough to soak a pad in less than an hour for several hours. Monitor for any signs of an infection in the breasts with severe pain or redness of the breast. - Discharge Plan *PRESCRIPTION DRUG MONITORING PROGRAM REVIEWED*: Not Applicable *COPY OF PRESCRIPTION DRUG MONITORING REPORT IN PATIENT DELTA: Not Applicable Home Medications: Home Meds Amoxicillin/Clavulanate K [Augmentin 875-125 MG] 1 tab PO Q12HR 01/05/19 [ History] Pnv No.122/Iron/Folic Acid [ Multi Tablet] 1 each PO DAILY 01/05/19 [ History] valACYclovir HCl [Valtrex] 500 mg PO DAILY 01/05/19 [History] Patient Handouts: Vaginal Delivery, Care After, Care of a Perineal Tear Referrals: Tre Schwartz MD [Primary Care Provider] - (Follow-up in 2-3 weeks for routine visit or earlier as needed.) - Discharge Summary/Plan Comment DC Time >30 min.: No - Patient Data Vitals - Most Recent: Last Vital Signs Temp 36.2 C 01/07/19 03:45 Pulse 84 01/07/19 03:45 Resp 16 01/07/19 03:45 BP 113/63 01/07/19 03:45 Pulse Ox 100 01/07/19 03:45 Weight - Most Recent: 80.739 kg Med Orders - Current: Current Medications Acetaminophen (Tylenol) 650 mg PO Q4H PRN PRN Reason: mild pain or fever Last Admin: 01/06/19 18:56 Dose: 650 mg Amoxicillin/Clavulanate Potassium (Augmentin 875 Mg/125 Mg) 1 tab PO Q12HR [facility] Last Admin: 01/06/19 23:56 Dose: 1 tab Benzocaine/Menthol (Dermoplast Pain Relief [place]) 0 gm TOP ASDIRECTED PRN PRN Reason: Perineal Comfort Measure Last Admin: 01/05/19 21:24 Dose: 1 spray Docusate Sodium (Colace) 100 mg PO BID PRN PRN Reason: Constipation Emollient Ointment (Lansinoh Hpa) 0 gm TOP ASDIRECTED PRN PRN Reason: Sore Nipples Ibuprofen (Motrin) 600 mg PO Q4H PRN PRN Reason: Mild pain or fever Last Admin: 01/06/19 23:56 Dose: 600 mg Prenat Multivit/[place]/Iron/Folic Ac ( Plus Iron) 1 each PO DAILY [facility] Last Admin: 01/06/19 14:30 Dose: Not Given Valacyclovir HCl (Valtrex) 500 mg PO BEDTIME [facility] Last Admin: 01/06/19 23:57 Dose: 500 mg [place] (Tucks) 1 pad TOP ASDIRECTED PRN PRN Reason: Perineal Comfort Measure Last Admin: 01/05/19 21:25 Dose: 1 applic Discontinued Medications Amoxicillin/Clavulanate Potassium (Augmentin 875 Mg/125 Mg) 1 tab PO Q12H [facility] Bupivacaine HCl (Sensorcaine-Mpf 0.25%) 10 ml .ROUTE .STK-MED ONE Stop: 01/05/19 12:01 Diphenhydramine HCl (Benadryl) 25 mg IVPUSH Q6H PRN PRN Reason: Itching Ephedrine Sulfate (Ephedrine Sulfate) 5 mg IVPUSH ASDIRECTED PRN PRN Reason: HYPOTENTSION Fentanyl (Sublimaze) 100 mcg EPIDUR Q3H PRN PRN Reason: Pain Fentanyl/Bupivacaine HCl (Fentanyl/Bupivacaine/Ns 2 Mcg-0.125% 100 Ml) 100 ml EPIDUR ASDIRECTED [facility] Last Admin: 01/05/19 14:18 Dose: 100 ml Lactated Ringer's (Ringers, Lactated) 1,000 mls @ 40 mls/hr IV ASDIRECTED [facility] Last Admin: 01/05/19 15:41 Dose: 40 mls/hr Oxytocin/Lactated Ringer's (Pitocin In Lr 10 Units/1,000 Ml) 10 unit in 1,000 mls @ 12 mls/hr IV TITRATE [facility]; Protocol Last Titration: 01/05/19 15:55 Dose: 0 munits/min, 0 mls/hr Lidocaine HCl (Xylocaine 1%) Confirm Administered Dose 50 ml .ROUTE .STK-MED ONE Stop: 01/05/19 18:15 Last Admin: 01/06/19 14:30 Dose: Not Given Misoprostol (Cytotec) Confirm Administered Dose 50 mcg .ROUTE .STK-MED ONE Stop: 01/05/19 07:16 Last Admin: 01/05/19 07:24 Dose: 50 mcg Misoprostol (Cytotec) 50 mcg VAG ONETIME ONE Stop: 01/05/19 07:20 Last Admin: 01/05/19 14:02 Dose: Not Given Misoprostol (Cytotec) Confirm Administered Dose 50 mcg .ROUTE .STK-MED ONE Stop: 01/05/19 10:18 Last Admin: 01/05/19 10:32 Dose: 50 mcg Misoprostol (Cytotec) 50 mcg VAG ONETIME PRN PRN Reason: labor induction Amoxicillin/Clavulanate K 875- 125 Mg Tab Ptom 0 each PO Q12H [facility] Last Admin: 01/06/19 00:55 Dose: Not Given Sodium Chloride (Saline Flush) 10 ml FLUSH ASDIRECTED PRN PRN Reason: Keep Vein Open Valacyclovir HCl (Valtrex) 500 mg PO DAILY [facility] Last Admin: 01/06/19 00:54 Dose: Not Given Valacyclovir HCl (Valtrex) 500 mg PO 2100 [facility] Valacyclovir HCl (Valtrex) 500 mg PO DAILY [facility] Valacyclovir HCl (Valtrex) 500 mg PO BEDTIME [facility] Last Admin: 01/05/19 22:47 Dose: 500 mg
[2019-01-07] MEDS: Amoxicillin/Clavulanate K 875-125 MG Tab PO SCH (10:05)
[2019-01-07] MEDS: Prenatal Multivitamin with Calcium/Folic Acid/Iron Tab PO SCH (10:05)
[2019-01-07 10:47] VITALS: BP 126/79
== END 2019-01-07 10:15 | disposition home or self-care (01) | DRG 560 ==
LOC: JD.OB 06:37 → OBSVTOIN 18:26 → JD.OB 18:27
PROVIDERS: ADMIT Obstetrics & Gynecology; ATTEND Obstetrics & Gynecology
PROC: 10E0XZZ Delivery of Products of Conception, External Approach (ICD-10-PCS; principal; 2019-01-05)
PROC: 10907ZC Drainage of Amniotic Fluid, Therapeutic from Products of Conception, Via Natural or Artificial Opening (ICD-10-PCS; 2019-01-05)
PROC: 3E0P7VZ Introduction of Hormone into Female Reproductive, Via Natural or Artificial Opening (ICD-10-PCS; 2019-01-05)
DX: O98.52 Other viral diseases complicating childbirth (principal); O70.1 Second degree perineal laceration during delivery; Z37.0 Single live birth; Z3A.39 39 weeks gestation of pregnancy; B00.9 Herpesviral infection, unspecified
CPT/HCPCS: 36415; 51702; 59025; 59409; 85025; 86850; 86900; 86901; A9270-GY; J2590; J3490; J7120